=== PATIENT | female | born 1955 | race Caucasian/White ===

== ENCOUNTER 2017-08-21 07:09 | Day surgery (SDC) | payer MEDICAID, OTHER ==
[2017-08-21] MEDS ORDERED: Lactated Ringers 1,000 ML IV SCH (07:30)
[2017-08-21] MEDS ORDERED: Propofol 200 MG/20 ML SDV ONE (08:09)
[2017-08-21] MEDS ORDERED: Midazolam 1 MG/ML 2 ML SDV ONE (08:10)
[2017-08-21] MEDS ORDERED: fentaNYL 100 MCG/2 ML SDV ONE (08:10)
[2017-08-21 09:49] VITALS: BP 119/73
--- NOTE | 2017-08-21 14:24 | OR ---
DATE OF PROCEDURE: 08/21/2017 PREOPERATIVE DIAGNOSIS: Colon cancer screening. POSTOPERATIVE DIAGNOSIS: Diverticulosis. PROCEDURE: Colonoscopy to the cecum. ANESTHESIA: IV anesthesia with monitored anesthesia care. INDICATION: This 62-year-old white female is referred for a colonoscopy for colon cancer screening. She has never had a colonoscopic exam. I counseled her for the procedure including risks and alternatives, and she gave her informed consent to proceed. DESCRIPTION OF PROCEDURE: The patient was placed in the left lateral decubitus position. IV anesthesia was administered by the Anesthesia Service. Time-out was held. A rectal exam was performed, which was unremarkable. The flexible video Olympus colonoscope was introduced through her anus, up her rectum, and out her colon, all the way to the cecum. En route, we saw very few left-sided diverticula. There was no bleeding or inflammation associated with them. Once the cecum was reached, the scope was slowly withdrawn examining the mucosa throughout. No additional mucosal abnormalities were noted. The scope was retroflexed in the rectum with the distal rectum appearing unremarkable. The scope was straightened and removed. She tolerated the procedure well. Marcio Valencia MD /[id number]
== END 2017-08-21 09:55 | disposition home or self-care (01) ==
LOC: JP.SDS 07:09
PROVIDERS: ATTEND Surgery
DX: Z12.11 Encounter for screening for malignant neoplasm of colon (principal); K57.30 Diverticulosis of large intestine without perforation or abscess without bleeding; K21.9 Gastro-esophageal reflux disease without esophagitis; M19.90 Unspecified osteoarthritis, unspecified site
CPT/HCPCS: 45378; J2250; J2704; J3010; J7120

== ENCOUNTER 2021-02-03 09:36 | Emergency (ER) | payer OTHER ==
[2021-02-03 10:05] VITALS: BP 140/87; PULSE 85
[2021-02-03] MEDS ORDERED: Ketorolac 30 MG/ML SDV IM ONE (10:26)
--- NOTE | 2021-02-03 11:09 | EDM.PDOC ---
ED HPI GENERAL MEDICAL PROBLEM - General Chief Complaint: General Stated Complaint: LEFT HIP PAIN Time Seen by Provider: 02/03/21 10:13 Source of Information: Reports: Patient History Limitations: Reports: No Limitations - History of Present Illness INITIAL COMMENTS - FREE TEXT/NARRATIVE: Rebecca a 5-year-old female presenting to the ED for evaluation of the left sided SI joint pain that started last night. She was standing at the counter last evening when her 6-year-old grandchild came running up to her hitting her on the right hip causing her to sway towards the left. This caused acute onset of left-sided SI joint pain with paresthesias going down to the toes. The patient tried to manage the pain at home with [id number] medications last night but was able to lay down or sleep. She finally wrapped herself into a electric blanket and took some Tylenol and was eventually able to get to sleep for a few hours. She woke up this morning with moderate to severe pain over the left SI joint and the inability to sit or lay down without increasing pain. She does have a history for bilateral hip osteoarthritis. Her pain is less severe when she is standing but she will get jolts of pain from time to time in the area of the SI joint. Left Hip Pain Score (Numeric/FACES): 9 - Related Data Allergies Allergy/AdvReac Type Severity Reaction Status Date / Time No Known Allergies Allergy Verified 08/21/17 07:20 Home Meds: Home Meds Aspirin [Halfprin] 81 mg PO DAILY 02/06/16 [History] Calcium Carbonate [Calcium] 500 mg PO DAILY 02/08/16 [History] Lactobacillus Acidophilus [Probiotic] 1 tab PO DAILY 02/08/16 [History] Multivitamin [Multivitamins] 1 tab PO DAILY 02/08/16 [History] Naproxen Sodium [Aleve] 220 mg PO ASDIRECTED PRN 06/18/16 [History] Acetaminophen [Tylenol Extra Strength] 500 mg PO Q4H PRN 02/03/21 [History] predniSONE [Prednisone] 40 mg PO DAILY 5 Days #10 tablet 02/03/21 [Rx] Past Medical History HEENT History: Reports: Impaired Vision Other HEENT History: hx ear ifections as a child, wisdom teeth removed Cardiovascular History: Reports: High Cholesterol Other Cardiovascular History: feels "flutter" occassionally Gastrointestinal History: Reports: None Other Gastrointestinal History: inguinal hernia, heart burn Genitourinary History: Reports: UTI, Recurrent Other Genitourinary History: urinary frequency NUB CARD TENDER History: Reports: , Other (See Below) Other NUB CARD TENDER History: ovarian cyst Musculoskeletal History: Reports: Arthritis, Fracture Other Musculoskeletal History: spondylitis back Neurological History: Reports: Migraines, TIA Psychiatric History: Reports: Anxiety, Depression, PTSD Hematologic History: Reports: Iron Deficiency - Infectious Disease History Infectious Disease History: Reports: Chicken Pox, Measles, Mumps - Past Surgical History Head Surgeries/Procedures: Reports: None Cardiovascular Surgical History: Reports: None GI Surgical History: Reports: Hernia, Inguinal, Hernia Repair/Other Female Surgical History: Reports: Tubal Ligation Neurological Surgical History: Reports: None Musculoskeletal Surgical History: Reports: None Dermatological Surgical History: Reports: None Social & Family History - Family History Family Medical History: No Pertinent Family History - Tobacco Use Tobacco Use Status *Q: Never Tobacco User - Caffeine Use Caffeine Use: Reports: Coffee - Recreational Drug Use Recreational Drug Use: No ED ROS GENERAL - Review of Systems Review Of Systems: See Below Constitutional: Reports: No Symptoms Respiratory: Reports: No Symptoms Cardiovascular: Reports: No Symptoms GI/Abdominal: Reports: No Symptoms : Reports: No Symptoms Musculoskeletal: Reports: Back Pain (History of chronic low back pain), Joint Pain (Left hip pain), Other (Left SI joint pain) Skin: Reports: No Symptoms Neurological: Reports: Paresthesia (Paresthesias in the left toes) Psychiatric: Reports: No Symptoms Hematologic/Lymphatic: Reports: No Symptoms ED EXAM, GENERAL - Physical Exam Exam: See Below Exam Limited By: No Limitations General Appearance: Alert, Mild Distress, Moderate Distress Back Exam: Vertebral Tenderness (Mild tenderness over the L5-S1 region), Other (Moderate to severe tenderness over the left SI joint with palpation and percussion producing the symptoms.) Extremities: Normal Range of Motion, Other (No tenderness to palpation over the left hip including over the greater trochanteric bursa.) Neurological: Alert, Oriented, Normal Cognition, No Motor/Sensory Deficits Psychiatric: Normal Affect, Normal Mood Skin Exam: No Rash Course - Vital Signs Last Recorded V/S: Last Vital Signs Temp 36.1 C 02/03/21 10:05 Pulse 85 02/03/21 10:05 Resp 16 02/03/21 10:05 BP 140/87 02/03/21 10:05 Pulse Ox 97 02/03/21 10:05 - Orders/Labs/Meds Orders: Active Orders 24 hr Category Date Time Status Hip Min 2V or 3V w Pelvis Lt [CR] Stat Exams 02/03/21 10:13 Taken Meds: Medications Discontinued Medications Generic Name Dose Route Start Last Admin Trade Name Kelli PRN Reason Stop Dose Admin Ketorolac Tromethamine 15 mg 02/03/21 10:26 02/03/21 10:37 Ketorolac 30 Mg/Ml Sdv IM 02/03/21 10:27 15 mg ONETIME ONE Administration - Radiology Interpretation Free Text/Narrative:: Reviewed the x-rays of the pelvis and left hip. There is no significant osseous abnormalities except for osteoarthritis. There is no fracture or dislocation. Departure - Departure Time of Disposition: 11:23 Disposition: Home, Self-Care 01 Clinical Impression: Sacroiliitis - Discharge Information Referrals: PCP,None [Primary Care Provider] - Care Plan Goals: Your work-up today has shown that you have acute sacroiliitis which is inflammation in the left sacroiliac joint. We will attempt to calm this down with the use of prednisone 40 mg daily for 5 days. You may take your Aleve or naproxen in addition to this. I will also give you a small amount of hydrocodone for the more severe pain so you can sleep. Sepsis Event Note (ED) - Evaluation Sepsis Screening Result: No Definite Risk - Focused Exam Vital Signs: Vital Signs Temp Pulse Resp BP Pulse Ox 02/03/21 10:05 36.1 C 85 16 140/87 97 - Problem List & Annotations (1) Sacroiliitis SNOMED Code(s): 67415992 Code(s): M46.1 - SACROILIITIS, NOT ELSEWHERE CLASSIFIED Status: Acute Priority: Medium Current Visit: Yes - Problem List Review Problem List Initiated/Reviewed/Updated: Yes - My Orders Last 24 Hours: My Active Orders 02/03/21 10:13 Hip Min 2V or 3V w Pelvis Lt [CR] Stat - Assessment/Plan Last 24 Hours: My Active Orders 02/03/21 10:13 Hip Min 2V or 3V w Pelvis Lt [CR] Stat
--- NOTE | 2021-02-04 09:32 | CR ---
Hip Min 2V or 3V w Pelvis Lt CLINICAL HISTORY: Left hip pain FINDINGS: No fracture or dislocation is identified. Articular surfaces are smooth. Joint spaces appear well maintained. There is moderate osteoarthropathy in the facets at the lumbosacral junction. There is a transitional lumbosacral segment IMPRESSION: Transitional lumbosacral segment with degenerative changes in the lumbar spine No fracture or dislocation
== END 2021-02-03 11:29 | disposition home or self-care (01) ==
LOC: JP.ED 09:36
DX: M46.1 Sacroiliitis, not elsewhere classified (principal); M19.90 Unspecified osteoarthritis, unspecified site; Z79.82 Long term (current) use of aspirin; Z79.899 Other long term (current) drug therapy
CPT/HCPCS: 73502; 96372; 99283; J1885